=== PATIENT | male | born 2005 | race Caucasian/White ===

== ENCOUNTER 2025-01-12 18:08 | Inpatient (IN) | payer OTHER ==
[~2025-01-12] VITALS: Ht 193 cm; Wt 77.3 kg
[2025-01-12] MEDS ORDERED: PALI3TAB14 PO (18:20)
[2025-01-12] MEDS ORDERED: CLON-592 PO (18:20)
[2025-01-12] MEDS ORDERED: DIVA-112 PO (18:20)
[2025-01-12] MEDS ORDERED: PROP20TA18 PO (18:20)
[2025-01-12] MEDS ORDERED: OLAN10TA74 PO (18:20)
[2025-01-12] MEDS ORDERED: BENZ0.5T52 PO (18:20)
[2025-01-12] MEDS ORDERED: OLAN5TAB52 PO (18:20)
[2025-01-12 19:17] LABS: BASOPHILS % (AUTO) 0.9 % (0.0-2.0); EOSINOPHILS % (AUTO) 2.5 % (1.0-6.0); HEMATOCRIT 38.2 % (41-53); LYMPHOCYTES # (AUTO) 2.2 K/uL (1.0-4.8); LYMPHOCYTES % (AUTO) 30.6 % (22.0-44.0); MEAN CORPUSCULAR HEMOGLOBIN 29.2 pg (26.0-34.0); MEAN CORPUSCULAR HGB CONC 34.1 G/dL (31.0-37.0); MEAN CORPUSCULAR VOLUME 86 fL (80-100); MONOCYTES # (AUTO) 0.7 K/uL (0.1-1.0); MONOCYTES % (AUTO) 10.2 % (2.0-9.0); NEUTROPHILS % (AUTO) 55.8 % (40.0-70.0); PLATELET COUNT (AUTO) 219 K/uL (150-450); RED BLOOD CELL COUNT(AUTO) 4.46 MIL/uL (4.50-5.90); RED CELL DISTRIBUTION WIDTH 14.8 % (11.5-14.5); WHITE BLOOD COUNT (AUTO) 7.2 K/uL (4.5-11.0)
[2025-01-12 19:25] LABS: ANION GAP 10 mmol/L (8-16); CARBON DIOXIDE 29 mmol/L (22-29); CHLORIDE 103 mmol/L (98-107); CREATININE 0.75 mg/dL (0.60-1.30); GLOMERULAR FILTR. RATE CALC > 60 mL/min (>60); GLUCOSE,RANDOM 104 mg/dL (70-110); POTASSIUM 3.9 mmol/L (3.5-5.1); SODIUM SERUM 142 mmol/L (136-145); UREA NITROGEN, BLOOD 15 mg/dL (7-18)
[2025-01-12 19:26] LABS: ALCOHOL, BLOOD (SERUM) < 3 mg/dL (0-10)
[2025-01-12] MEDS ORDERED: PROP60CA31 PO (20:18)
[2025-01-12 20:22] LABS: COVID AG,FIA SOURCE NASAL SWAB
[2025-01-12] MEDS ORDERED: LORazepam 2 MG TABLET PO PRN (20:30)
[2025-01-12] MEDS ORDERED: haloperidoL 5 MG TABLET PO PRN (20:30)
[2025-01-12] MEDS: LORazepam 2 MG TABLET PO ONE (20:33)
[2025-01-12] MEDS: OLANZapine 10 MG TABLET PO SCH (20:33)
[2025-01-12] MEDS: DiphenhydrAMINE HCL 25 MG CAPSULE PO ONE (20:33)
[2025-01-12] MEDS: ClonazePAM 0.5 MG TABLET PO SCH (20:34)
[2025-01-12 20:45] LABS: SARS-COV2 (COVID) ANTIGEN,FIA Negative (Negative)
[2025-01-12] MEDS: BENZTROPINE MESYLATE 0.5 MG TABLET PO SCH (21:14)
[2025-01-12] MEDS: DIVALPROEX SODIUM 500 MG DR TABLET PO SCH (21:14)
[2025-01-12 21:42] LABS: APPEARANCE,URINE CLEAR (CLEAR); BILIRUBIN,URINE NEGATIVE (NEGATIVE); COLOR,URINE LIGHT YELLOW (YELLOW); GLUCOSE, URINE (UA) NEGATIVE (NEGATIVE); KETONES,URINE TRACE mg/dL (NEGATIVE); LEUKOCYTE ESTERASE ,URINE NEGATIVE (NEGATIVE); NITRATE,URINE NEGATIVE (NEGATIVE); OCCULT BLOOD,URINE NEGATIVE (NEGATIVE); PH,URINE 7.5 (5.0-8.0); PH,URINE DRUG SCREEN 7.5 (5.0-8.0); PROTEIN,URINE NEGATIVE (NEGATIVE); SPECIFIC GRAVITIY, URINE 1.019 (1.003-1.030); UROBILINOGEN,URINE <=1.0 mg/dL (<=1.0)
[2025-01-12 21:48] LABS: AMPHET/METH SCREEN,URINE NEGATIVE (NEGATIVE); BARBITURATE SCREEN, URINE NEGATIVE (NEGATIVE); BENZODIAZEPINES SCREEN,URINE NEGATIVE (NEGATIVE); CANNABINOID SCREEN,URINE NEGATIVE (NEGATIVE); COCAINE SCREEN,URINE NEGATIVE (NEGATIVE); METHADONE SCREEN, URINE NEGATIVE (NEGATIVE); OPIATE SCREEN,URINE NEGATIVE (NEGATIVE); PHENCYCLIDINE SCREEN,URINE NEGATIVE (NEGATIVE)
[2025-01-12 21:51] LABS: ALCOHOL, URINE DRUG SCREEN NEGATIVE (NEGATIVE)
[2025-01-12] MEDS: ZOLPIDEM TARTRATE 10 MG TABLET PO PRN (21:58)
[2025-01-13 01:33] VITALS: O2SAT 100
[2025-01-13 08:38] VITALS: BP 127/81; PULSE 83; RESP 18; TEMP 97.2; O2SAT 98
[2025-01-13] MEDS: PALIPERIDONE 3 MG ER TABLET PO SCH (08:42)
[2025-01-13] MEDS: PROPRANOLOL HCL 60 MG ER CAPSULE PO SCH (08:43)
[2025-01-13] MEDS ORDERED: IBUPROFEN 600 MG TABLET PO PRN (08:45)
[2025-01-13] MEDS ORDERED: PETROLATUM,WHITE 28 GM JELLY TP PRN (08:45)
[2025-01-13] MEDS ORDERED: DOCUSATE SODIUM 100 MG CAPSULE PO PRN (08:45)
[2025-01-13] MEDS ORDERED: MAGNESIUM HYDROXIDE SUSPENSION 30 ML UDCUP PO PRN (08:45)
[2025-01-13] MEDS ORDERED: MAG HYDROX/ALUMINUM HYD/SIMETH ES 30 ML SUSPENSION UDCUP PO PRN (08:45)
[2025-01-13] MEDS ORDERED: ONDANSETRON 4 MG TABLET PO PRN (08:45)
[2025-01-13] MEDS ORDERED: OMEPRAZOLE 20 MG CAPSULE PO PRN (08:45)
[2025-01-13] MEDS ORDERED: LOPERAMIDE HCL 2 MG CAPSULE PO PRN (08:45)
[2025-01-13] MEDS ORDERED: BACITRACIN 28 GM OINTMENT TP PRN (08:45)
[2025-01-13] MEDS ORDERED: ALBUTEROL SULFATE HFA 90 MCG/PUFF 8 GM INHALER IH PRN (08:45)
[2025-01-13] MEDS ORDERED: ACETAMINOPHEN 325 MG TABLET PO PRN (08:45)
[2025-01-13] MEDS ORDERED: CloNIDine HCL 0.1 MG TABLET PO PRN (08:45)
[2025-01-13] MEDS ORDERED: BENZOCAINE/MENTHOL [CEPACOL] LOZENGE PO PRN (08:45)
[2025-01-13 12:40] VITALS: BP 103/60
[2025-01-13 16:19] VITALS: BP 102/60
[2025-01-13 21:18] VITALS: BP 102/60; PULSE 67; RESP 18; TEMP 97.5; O2SAT 98
[2025-01-14 08:41] VITALS: BP 105/56; PULSE 59; RESP 14; TEMP 97.6; O2SAT 97
[2025-01-14 20:21] VITALS: BP 110/56; PULSE 80; RESP 17; TEMP 98.1; O2SAT 98
[2025-01-15 08:38] VITALS: BP 114/67; PULSE 65; RESP 16; TEMP 97; O2SAT 97
[2025-01-15 20:14] VITALS: BP 107/58; PULSE 69; RESP 17; TEMP 97.8; O2SAT 95
[2025-01-16 08:06] VITALS: PULSE 64; RESP 17; TEMP 98.3; O2SAT 99
[2025-01-16] MEDS: PALIPERIDONE PALMITATE 156 MG/ML SYRINGE IM SCH (11:17)
[2025-01-16] MEDS ORDERED: DIVA-112 PO ×2 (14:05→16:42)
[2025-01-16] MEDS ORDERED: PALI156D IM ×2 (14:06→16:42)
[2025-01-16] MEDS ORDERED: PROP60CA31 PO (16:42)
[2025-01-16] MEDS ORDERED: BENZ0.5T52 PO (16:42)
[2025-01-16] MEDS ORDERED: CLON-592 PO (16:42)
[2025-01-16] MEDS ORDERED: OLAN10TA74 PO (16:42)
== END 2025-01-16 15:15 | disposition home or self-care (01) | DRG 885 ==
LOC: EMS 18:17 → B2S 01-13 00:21
PROVIDERS: ADMIT Psychiatry & Neurology Psychiatry; ATTEND Psychiatry & Neurology Psychiatry
PROC: GZHZZZZ Group Psychotherapy (ICD-10-PCS; principal; 2025-01-13)
PROC: GZ56ZZZ Individual Psychotherapy, Supportive (ICD-10-PCS; 2025-01-13)
DX: F25.0 Schizoaffective disorder, bipolar type (principal); Z20.822 Contact with and (suspected) exposure to COVID-19; F84.0 Autistic disorder; F12.21 Cannabis dependence, in remission; F41.9 Anxiety disorder, unspecified; G47.00 Insomnia, unspecified; K59.00 Constipation, unspecified; Z79.899 Other long term (current) drug therapy; F17.210 Nicotine dependence, cigarettes, uncomplicated
CPT/HCPCS: 80048; 80307; 81003; 85025; 87081; 99285; G0480